=== PATIENT | female | born 1935 ===

== ENCOUNTER 2023-07-05 06:05 | Inpatient (IN) | payer MEDICARE, OTHER, SELFPAY ==
--- NOTE | 2023-06-06 09:45 | CM ---
Patient is scheduled for an elective R TKR on 07/05/23. Spoke with patient prior to surgery via telephone. Introduced role of Orthopedic Navigator. Patient reports that she lives alone in a two story home. There are two steps to enter and a flight of
steps to the second floor. She currently functions independently. She has no DME and has never had VN services. PCP is Katia Jurado.
Discussed orthopedic program and post surgical plans. Reviewed anticipated length of stay and that goal is for her to return home at discharge. Also reviewed outpatient PT. Patient is in agreement with tentative plan and will go directly to
outpatient PT at [facility]. She states that a friend will stay with her for two days.
Patient has completed online education.
Plan: Orthopedic Navigator will remain available to assist with the care of patient and will reassess discharge needs after surgery.
[2023-06-20 12:51] VITALS: BMI 20.9
[2023-06-20 13:13] LABS: Hematocrit 38.2 % (37.0-47.0); Mean Corpuscular Hgb 31.6 pg (27.0-31.0); Mean Corpuscular Volume 92.9 fL (81.0-99.0); Mean Platelet Volume 9.9 fL (7.4-10.4); Platelet Count 218 10^3/uL (130-400); Red Blood Cell Count 4.11 10^6/uL (4.20-5.40); White Blood Cell Count 4.1 10^3/uL (4.8-10.8)
[2023-06-20 13:30] LABS: ALT (SGPT) 28 U/L (0-35); AST (SGOT) 36 U/L (14-36); Albumin 4.3 g/dl (3.5-5.0); Alkaline Phosphatase 78 U/L (38-126); Blood Urea Nitrogen 17 mg/dl (7-17); Carbon Dioxide 30 mmol/L (22-30); Chloride 105 mmol/L (98-107); Estimated Creatinine Clearance 42 ml/min; Glucose 81 mg/dl (70-99); Potassium 3.9 mmol/L (3.5-5.1); Sodium 138 mmol/L (135-145); Total Bilirubin 0.9 mg/dl (0.2-1.3); Total Protein 6.8 g/dl (6.3-8.2); eGFR > 60.00
[2023-06-20 14:38] VITALS: BMI 20.9
[2023-06-21 09:31] LABS: Glycohemoglobin (HgbA1c) 5.1 % (4.0-5.6)
[2023-07-05] VITALS (21 sets, daily range): BP systolic 69–159; BP diastolic 47–73; PULSE 60; O2SAT 89; BMI 20.9
[2023-07-05] MEDS: NORMOSOL-R 1000 IV ×2 (07:13→11:57)
[2023-07-05] MEDS: CELEBREX 200 MG PO (07:14)
[2023-07-05] MEDS: VANCOCIN 200 IV ×2 (07:14→20:27)
[2023-07-05] MEDS: TYLENOL 650 MG PO ×3 (07:14→21:41)
[2023-07-05] MEDS: ROXICODONE 5 MG PO (11:56)
[2023-07-05] MEDS: DILAUDID 0.25 MG IV (12:28)
[2023-07-05] MEDS: ZOFRAN 4 MG IV (13:55)
[2023-07-05] MEDS: TYLENOL PO (14:39)
[2023-07-05] MEDS: FLORASTOR 250 MG PO ×2 (14:54→20:31)
[2023-07-05] MEDS: ULTRAM 50 MG PO ×2 (14:54→20:28)
[2023-07-05] MEDS: DILAUDID 0.5 MG IV (15:48)
[2023-07-05] MEDS: ANCEF 5 IV (17:40)
[2023-07-05] MEDS: ASPIRIN 325 MG PO (17:40)
[2023-07-05] MEDS: ADVAIR HFA 115/21 MCG INHALER 2 PUFF INH (20:10)
[2023-07-05] MEDS: BACTROBAN 2% OINTMENT 1 APPLIC NASAL (20:28)
[2023-07-05] MEDS: TORADOL 15 MG IV (20:28)
[2023-07-05] MEDS: SENOKOT 17.1999999999999993 MG PO (20:28)
[2023-07-05] MEDS: COLACE 100 MG PO (20:28)
[2023-07-05] MEDS: DECADRON 4 MG PO (20:30)
[2023-07-05] MEDS: NEURONTIN 300 MG PO (21:38)
[2023-07-05] MEDS: PEPCID 20 MG PO (21:39)
[2023-07-06] MEDS: TYLENOL PO ×2 (00:03→05:01)
[2023-07-06] MEDS: ANCEF 5 IV (00:56)
[2023-07-06 03:33] VITALS: BP 106/49
[2023-07-06 03:51] VITALS: BP 135/64
[2023-07-06 07:40] VITALS: BP 109/65
[2023-07-06] MEDS: MOBIC 15 MG PO (08:16)
[2023-07-06] MEDS: DECADRON 4 MG PO (08:16)
[2023-07-06] MEDS: FLORASTOR 250 MG PO (08:16)
[2023-07-06] MEDS: ASPIRIN 325 MG PO (08:16)
[2023-07-06] MEDS: SENOKOT 17.1999999999999993 MG PO (08:16)
[2023-07-06] MEDS: ULTRAM 50 MG PO (08:17)
[2023-07-06] MEDS: COLACE 100 MG PO (08:17)
[2023-07-06] MEDS: BACTROBAN 2% OINTMENT 1 APPLIC NASAL (08:17)
[2023-07-06] MEDS: TORADOL 15 MG IV (08:17)
[2023-07-06] MEDS: TYLENOL 650 MG PO ×2 (08:17→11:10)
[2023-07-06] MEDS: ADVAIR HFA 115/21 MCG INHALER 2 PUFF INH (08:26)
--- NOTE | 2023-07-06 08:39 | CM ---
Addendum entered by Gela Ellis 07/06/23 11:36:
Patient did well in therapy. She has no concerns about going home.
Original Note:
Reviewed chart and held rounds with PT, OT and nursing. Patient admitted as planned for elective R TKR. Met with patient at bedside. Confirmed information previously obtained for assessment. Also discussed discharge plans. The plan is for patient to
return home at discharge. Her friend will stay with her for a few days. Patient will go directly to outpatient PT and will go to [facility]. She has an appointment scheduled for Monday, 07/07.
Patient has a rolling walker and cane.
She will use [facility] for discharge prescriptions.
[2023-07-06 09:27] VITALS: BP 127/64; PULSE 66
--- NOTE | 2023-07-06 09:55 | W.PN.ORTHO ---
Today's Communication / Plan
-
d/c if BP remains stable
Assessment
.
Distal Motor Intact: Yes
Dressing:
Clean, dry and intact.
Assessment:
Dizzy w/ nausea--likely orthostatic due to anesthesia/opioid
+-Midodrine and IVF -adjust pain meds and antiemetics
Plan
.
Surgery / Date: R SCOTTY Gurrola 07/05/23
DVT Prophylaxis: Aspirin
Activity:
Out of bed.
PT/OT
Discharge Plan: Home w/ Outpatient PT
Subjective
.
.:
dizzy and nauseous
Vital Signs and Labs
.
Vital Signs and Labs:
Lab Results
06/20/23 12:32
06/20/23 12:32
Temp Pulse Resp BP Pulse Ox
98.2 F 77 18 109/65 97
07/06/23 07:40 07/06/23 07:40 07/06/23 07:40 07/06/23 07:40 07/06/23 07:40
Non-invasive Hgb result: 13.1
Physical Exam
-
HEENT: No pallor, cyanosis, or jaundice. Throat clear.
NECK: Supple. No JVD.
CVS: S1, S2 normal. RRR.�
ABDOMEN: Soft, non-tender. No distension. BS+/normal.
EXTREMITIES: strength equal, no calf pain with palpation
SENIOR VICE PRESIDENT & GENERAL COUNSEL: AOx3. No focal deficits. gluer and slicer hand grossly intact
--- NOTE | 2023-07-06 10:11 | W.DS.TRANS ---
DC Summary - Power Distributor
-
Discharge Instructions:
Sleep Apnea Risk Low
Discharge Diagnosis/Procedures R TKA Dr. Gurrola 07/05/23
Diet As tolerated
Activity With Walker
Additional Activity CONTINUE MUPIROCIN TWICE DAILY FOR A TOTAL OF 14
DAYS
Driving Restrictions No driving
Bathing Restrictions OK to Shower
Other Services PT
Stop these medications: HOLD SUPPLEMENTS -(UNLESS THOSE SPECIFIED ) X 7
DAYS POST-OP
Instructions:
Stand-Alone Forms: Total Hip/Knee Replacement D/C
Changes to Home Medications: Yes
Discharge Medications:
DC Medications w/original date entered in [employer]
mupirocin 2 % topical ointment 1 applic topical BID infection prevention #1 tube 06/19/23
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
Probiotic 10 mg PO DAILY probiotic 06/20/23
cyclosporine 0.05 % eye drops in a dropperette (Restasis) 1 drp ophthalmic (eye) Q12H dry eyes 06/20/23
fluconazole 150 mg tablet 150 mg PO TU Infection [fungal] 06/20/23
fluticasone 250 mcg-salmeterol 50 mcg/dose blistr powdr for inhalation (Advair Diskus) 1 - 2 inh inhalation BID Lung/Breathing Issues 06/20/23
acetaminophen 325 mg capsule (Tylenol) 650 mg PO TID #2 caps 07/06/23
aspirin 325 mg tablet 325 mg PO DAILY blood clot prevention #1 tab 07/06/23
dexamethasone 4 mg tablet 4 mg PO BID inflammation #6 tabs 07/06/23
docusate sodium 100 mg capsule (Colace) 100 mg PO BID stool softner #1 cap 07/06/23
famotidine 20 mg tablet 20 mg PO HS GI prophylaxis #30 tabs 07/06/23
gabapentin 300 mg capsule 300 mg PO HS sleep/pain #10 caps 07/06/23
hydrocodone 5 mg-acetaminophen 325 mg tablet 1 tab PO Q6H PRN moderate-severe pain #20 tabs 07/06/23
magnesium hydroxide 400 mg/5 mL oral suspension (Milk of Magnesia) 30 ml PO HS PRN Constipation #1 mL 07/06/23
meloxicam 15 mg tablet 15 mg PO DAILY anti-inflammatory #14 tabs 07/06/23
ondansetron 4 mg disintegrating tablet 4 mg PO Q6H PRN n/v #20 tabs 07/06/23
sennosides 8.6 mg tablet (Senokot) 17.2 mg PO BID laxative #2 tabs 07/06/23
Home Medication Changes
dexamethasone 4 mg tablet 4 mg PO BID inflammation #6 tabs 07/06/23
famotidine 20 mg tablet 20 mg PO HS GI prophylaxis #30 tabs 07/06/23
gabapentin 300 mg capsule 300 mg PO HS sleep/pain #10 caps 07/06/23
hydrocodone 5 mg-acetaminophen 325 mg tablet 1 tab PO Q6H PRN moderate-severe pain #20 tabs 07/06/23
meloxicam 15 mg tablet 15 mg PO DAILY anti-inflammatory #14 tabs 07/06/23
ondansetron 4 mg disintegrating tablet 4 mg PO Q6H PRN n/v #20 tabs 07/06/23
Pending Results: No
[2023-07-06 10:55] VITALS: BP 117/85; PULSE 76
[2023-07-06] MEDS: ZOFRAN ODT (ORALLY DISINTEGRATING) 4 MG PO (11:09)
[2023-07-06] MEDS: COMPAZINE 5 MG IV (11:09)
[2023-07-06 11:20] VITALS: BP 109/57
== END 2023-07-06 13:16 | disposition home or self-care (01) | DRG 470 ==
LOC: 2 SOUTH 06:05
PROVIDERS: ADMITTING PHYSICIAN Orthopaedic Surgery; FAMILY PHYSICIAN Internal Medicine
PROC: 0SRC069 Replacement of Right Knee Joint with Oxidized Zirconium on Polyethylene Synthetic Substitute, Cemented, Open Approach (ICD-10-PCS; 2023-07-05)
DX: M17.11 Unilateral primary osteoarthritis, right knee (principal); R11.0 Nausea; R42 Dizziness and giddiness
CPT/HCPCS: 36415; 73560; 80053; 83036; 85027; 87070; 93005; 94640; 97110; 97116; 97162; 97165; 97530; C1713; C1776

== ENCOUNTER 2024-10-11 18:31 | Emergency (ER) | payer MEDICARE, OTHER, SELFPAY ==
[2024-10-11 18:38] VITALS: BP 144/72
[2024-10-11 18:55] LABS: % Basophils 0.7 % (0-2); % Eosinophils 4.4 % (0-6); % Immature Granulocytes 0.2 % (0-0.5); % Lymphocytes 9.1 % (20.5-51.1); % Monocytes 9.1 % (1.7-9.3); % Neutrophils 76.5 % (42.2-75.2); Absolute Eosinophils 0.2 10^3/uL (0-0.7); Absolute Lymphocytes 0.5 10^3/uL (1.2-3.4); Absolute Monocytes 0.5 10^3/uL (0.1-0.6); Absolute Neutrophils 4.2 10^3/uL (1.4-6.5); Hemoglobin 12.7 g/dL (12.0-16.0); Mean Corp Hgb Conc. 33.4 g/dL (33.0-37.0); Mean Corpuscular Hgb 30.6 pg (27.0-31.0); Mean Corpuscular Volume 91.6 fL (81.0-99.0); Mean Platelet Volume 9.4 fL (7.4-10.4); Nucleated Red Blood Cells % 0 %; Platelet Count 196 10^3/uL (130-400); Red Blood Cell Count 4.15 10^6/uL (4.20-5.40); Red Cell Dist. Width 13.8 % (11.5-14.5); White Blood Cell Count 5.5 10^3/uL (4.8-10.8)
[2024-10-11 19:08] LABS: Lactic Acid 0.7 mmol/L (0.7-2.0)
[2024-10-11 19:09] LABS: ALT (SGPT) 21 U/L (0-35); AST (SGOT) 33 U/L (14-36); Albumin 4.4 g/dl (3.5-5.0); Alkaline Phosphatase 82 U/L (38-126); Blood Urea Nitrogen 22 mg/dl (7-17); Calcium 9.2 mg/dl (8.4-10.2); Carbon Dioxide 26 mmol/L (22-30); Chloride 102 mmol/L (98-107); Glucose 100 mg/dl (70-99); Potassium 4.1 mmol/L (3.5-5.1); Sodium 138 mmol/L (135-145); Total Bilirubin 0.8 mg/dl (0.2-1.3); Total Protein 6.9 g/dl (6.3-8.2); eGFR > 60.00
[2024-10-11] MEDS: TYLENOL 650 MG PO (19:24)
[2024-10-11 20:56] VITALS: BP 106/59
--- NOTE | 2024-10-11 21:25 | ED.GENMED ---
History of Present Illness
<Dayana Jackson, VP MARKETING - Last Filed: 10/12/24 16:30>
General
Chief Complaint: Skin Problem
Source: patient
Exam Limitations: none
Time Seen by Provider: 10/11/24 20:43
Nursing documentation reviewed up to this point in time: agreed with
History of Present Illness
History of Present Illness:
89 yo female with hx skin biopsy by Dr. Richards lateral aspect LLE in Jul. BX came back neg for CA. She has had local infection to area since, unresponsive to Keflex, Doxycycline and now she is on Minocycline. Wound culture done 2 weeks ago, one
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 Dr. Richards consulted ID doctor and sent a picture of the wound to ID who said they would like to wait until the rest of the cultures are back; they are not back yet.
This evening pt had fever of 101.7 at home and called Dr. Richards who was concerned for infection and sent her here
She denies cough, CP, abd pain, UTI symptoms, no known sick contacts, no recent travel.
Pt states she and Dr Richards, who she last saw 3 days ago, agree wound is slowly improving.
Pt denies any worse pain in the area, no swelling, redness
Past History
<Dayana Jackson, VP MARKETING - Last Filed: 10/12/24 16:30>
Past History
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
ED Past Surgical History: Orthopedic
Social History
Tobacco: Non-smoker
Alcohol: None
Living: alone
Review of Systems
<Dayana Jackson, VP MARKETING - Last Filed: 10/12/24 16:30>
Review of Systems
Allergies reviewed?: Yes
All Other Systems: ROS reviewed and negative except as documented in HPI and ROS
Constitutional: Reports fever and fatigue (mild body aches); Denies chills
Respiratory: Denies trouble breathing
Cardiac: Denies chest pain
ABD/GI: Reports nausea (mild earlier none now); Denies abdominal pain, vomiting, diarrhea or constipated
: Denies dysuria, frequency or difficulty voiding
Musculoskeletal: Denies edema
Skin: Reports other (wound lateral left lower leg, states it is improving)
Neurological: Reports no symptoms
Phy Exam
<Dayana Hawkins , VP MARKETING - Last Filed: 10/12/24 16:30>
Physical Exam
Physical Exam:
GENERAL: No acute distress. A&Ox3.
CONSTITUTIONAL: Afebrile.
EYES: clear, conjunctivae normal
ENMT: moist mucus membranes
RESPIRATORY: Regular respirations, nonlabored, lungs clear.
CARDIOVASCULAR: Regular rate and rhythm, no murmurs, no rubs.
GI: Soft, nontender
MUSCULOSKELETAL: Moves with ease. Well perfused.
SKIN: Warm, dry, pink. approx 7 x 4 cm area lateral left lower leg with Wound that appears to be healing well. No surrounding redness, no significant pain, distal n/v intact.
PSYCH: Normal mood and affect. Well kept, interactive and appropriate
NEUROLOGIC: Awake, alert and oriented. No focal neurological deficits
Sepsis
<Dayana VMalik , VP MARKETING - Last Filed: 10/12/24 16:30>
Sepsis Screening
Sepsis Assessment: Sepsis Ruled Out
Sepsis Screen
Sepsis Screen: Sepsis Ruled Out
Date: 10/12/24
Time: 16:30
Course
<Dayana Little. , VP MARKETING - Last Filed: 10/12/24 16:30>
Orders/Labs/Results
Orders:
Orders
10/11/24 18:43
IV Insert/Care/Rem.- Treatment PRN
O2 Therapy [RESP] Urgent
Titrate/Wean O2 to maintain O2 sat greater than (%): 93
Special Instructions: TO MAINTAIN CONTINUOUS O2 SATS > OR = 93%
Pulse Ox/cont/shift [RESP] Urgent
Quantity: 1
Special Instructions: CONTINUOUS
10/11/24 18:47
Complete Blood Count/With Diff Urgent
Comprehensive Metabolic Panel Urgent
Lactic Acid Q4H
Comment: ON ICE, CANCEL 2ND ORDER IF FIRST LACTIC ACID LEVEL <2
Blood Culture Q20M
MICKY Source: Blood/Venous
Specimen Description:
Comment: Urgent from separate sites. If patient screens positive for possible sepsis
10/11/24 19:20
Acetaminophen [Tylenol] 650 mg .ROUTE .STK-MED ONE
10/11/24 19:23
Acetaminophen [Tylenol] 650 mg PO NOW STA
10/11/24 22:00
CR Leg Tibia/fibula Left 2 Vw Urgent
Comment:
Reason For Exam: wound lateral lower leg
10/11/24 22:29
COVID-19 Antigen Urgent
Source: Nasal Swab
Blood Culture Q20M
MICKY Source: Blood/Venous
Specimen Description:
Comment: Urgent from separate sites. If patient screens positive for possible sepsis
Influenza A+B Rapid Molecular Urgent
MICKY Source: Nasal Swab
Specimen Description:
10/11/24 22:32
Urinalysis Reflex To Culture Urgent
Date Specimen was Collected: 10/11/24
Time Specimen was Collected: 22:31
Abnormal Lab Results
10/11/24
18:47
RBC 4.15 L 10^6/uL
(4.20-5.40)
Absolute Lymphs (auto) 0.5 L 10^3/uL
(1.2-3.4)
Neutrophils % 76.5 H %
(42.2-75.2)
Lymphocytes % 9.1 L %
(20.5-51.1)
BUN 22 H mg/dl
(7-17)
Glucose 100 H mg/dl
(70-99)
10/11/24 18:47
10/11/24 18:47
Vital Signs
Initial and Last Documented VS:
Initial Vital Signs
Temp Pulse Resp BP Pulse Ox
100.9 F H 88 16 144/72 97
10/11/24 18:38 10/11/24 18:38 10/11/24 18:38 10/11/24 18:38 10/11/24 18:38
Last Documented Vital Signs
Temp Pulse Resp BP Pulse Ox
101 F H 88 16 110/76 95
10/11/24 19:17 10/11/24 18:38 10/11/24 18:38 10/12/24 00:00 10/12/24 00:01
<Naveed English, DO - Last Filed: 10/11/24 22:22>
Orders/Labs/Results
Orders:
Orders
10/11/24 18:43
IV Insert/Care/Rem.- Treatment PRN
O2 Therapy [RESP] Urgent
Titrate/Wean O2 to maintain O2 sat greater than (%): 93
Special Instructions: TO MAINTAIN CONTINUOUS O2 SATS > OR = 93%
Pulse Ox/cont/shift [RESP] Urgent
Quantity: 1
Special Instructions: CONTINUOUS
10/11/24 18:47
Complete Blood Count/With Diff Urgent
Comprehensive Metabolic Panel Urgent
Lactic Acid Q4H
Comment: ON ICE, CANCEL 2ND ORDER IF FIRST LACTIC ACID LEVEL <2
Blood Culture Q20M
MICKY Source: Blood/Venous
Specimen Description:
Comment: Urgent from separate sites. If patient screens positive for possible sepsis
10/11/24 19:20
Acetaminophen [Tylenol] 650 mg .ROUTE .STK-MED ONE
10/11/24 19:23
Acetaminophen [Tylenol] 650 mg PO NOW STA
10/11/24 22:00
CR Leg Tibia/fibula Left 2 Vw Urgent
Comment:
Reason For Exam: wound lateral lower leg
10/11/24 22:29
COVID-19 Antigen Urgent
Source: Nasal Swab
Blood Culture Q20M
MICKY Source: Blood/Venous
Specimen Description:
Comment: Urgent from separate sites. If patient screens positive for possible sepsis
Influenza A+B Rapid Molecular Urgent
MICKY Source: Nasal Swab
Specimen Description:
10/11/24 22:32
Urinalysis Reflex To Culture Urgent
Date Specimen was Collected: 10/11/24
Time Specimen was Collected: 22:31
Abnormal Lab Results
10/11/24
18:47
RBC 4.15 L 10^6/uL
(4.20-5.40)
Absolute Lymphs (auto) 0.5 L 10^3/uL
(1.2-3.4)
Neutrophils % 76.5 H %
(42.2-75.2)
Lymphocytes % 9.1 L %
(20.5-51.1)
BUN 22 H mg/dl
(7-17)
Glucose 100 H mg/dl
(70-99)
10/11/24 18:47
10/11/24 18:47
Vital Signs
Initial and Last Documented VS:
Initial Vital Signs
Temp Pulse Resp BP Pulse Ox
100.9 F H 88 16 144/72 97
10/11/24 18:38 10/11/24 18:38 10/11/24 18:38 10/11/24 18:38 10/11/24 18:38
Last Documented Vital Signs
Temp Pulse Resp BP Pulse Ox
101 F H 88 16 110/76 95
10/11/24 19:17 10/11/24 18:38 10/11/24 18:38 10/12/24 00:00 10/12/24 00:01
<Dayana Jackson, VP MARKETING - Last Filed: 10/12/24 16:30>
MDM/Problems Addressed
Differential Diagnosis Includes:
cellulitis
MDM/Problems Addressed:
89 yo female with hx skin biopsy by Dr. Richards lateral aspect LLE in Jul. BX came back neg for CA. She has had local infection to area since, unresponsive to Keflex, Doxycycline and now she is on Minocycline. Wound culture done 2 weeks ago, one
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 Dr. Richards consulted ID doctor and sent a picture of the wound to ID who said they would like to wait until the rest of the cultures are back; they are not back yet.
This evening pt had fever of 101.7 at home and called Dr. Richards who was concerned for infection and sent her here
She denies cough, CP, abd pain, UTI symptoms, no known sick contacts, no recent travel.
Pt states she and Dr Richards, who she last saw 3 days ago, agree wound is slowly improving.
Pt denies any worse pain in the area, no swelling, redness
CBC normal
CMP unremarkable
U/A neg
Covid neg
Flu neg
Tib fib xray: Radiology read; IMPRESSION:
No acute fracture or dislocation. Partially visualized regional joints demonstrate degenerative changes. Soft tissues are grossly unremarkable.
Wound appears to be healing well, no surrounding cellulitis, small amount clear drainage. Distal n/v intact. Do not suspect fever is from the wound.
Plan: DC home. She feels well and appears well.
Return instructions reviewed.
Dr. English in to evaluate and agrees with assessment and plan.
<Dayana Jackson VP MARKETING - Last Filed: 10/12/24 16:30>
*Critical Care Note
Total Time (30-74mins, 75-104mins- exclusive of procedures): Not Applicable
ED Attending Note
<Dayana Jackson, VP MARKETING - Last Filed: 10/12/24 16:30>
-
Portions of this chart may have been created with voice recognition software.� Occasional wrong word or��sound alike� substitutions may have occurred due to the inherent limitations of voice recognition software.
<Naveed English DO - Last Filed: 10/11/24 22:22>
ED Attending Note
Patient seen and examined by attending physician: Yes
I performed the substantive portion of visit, reviewed & personally made and approve the management plan that is documented in note by myself or ANGELA.: Yes
Discharge Plan
Departure
Patient Disposition: Home (Routine Discharge)
Date of Disposition: 10/11/24
Time of Disposition: 23:43
Patient with high blood pressure during this ER visit?: No
Condition: Good
Discharge Problem:
Fever in adult
Instructions: Fever in adults - Discharge instructions
Prescriptions:
No Action
mupirocin 2 % ointment
1 applic topical BID Qty: 1 0RF
Patient Comments:
started treatment monday07/02/23 and wa staking BID, last took at home 07/05/23 in am
cyclosporine [Restasis] 0.05 % Dropperette
1 drp OPHTHALMIC (EYE) Q12H
Immune Globulin
1 dose IV Q30D
Probiotic 10 MG
10 mg PO DAILY
fluticasone propion-salmeterol [Advair Diskus] 250-50 mcg/dose Blister With Device
1 - 2 inh INHALATION BID
fluconazole 150 mg Tablet
150 mg PO TU
aspirin 325 mg tablet
325 mg PO DAILY Qty: 1 0RF
Rx Instructions:
Take with food
hydrocodone-acetaminophen 5-325 mg tablet
1 tab PO Q6H PRN (Reason: moderate-severe pain) Qty: 20 0RF
Rx Instructions:
Dx orthopedic surgery
ongoing therapy
famotidine 20 mg tablet
20 mg PO HS Qty: 30 0RF
Rx Instructions:
post-op
dexamethasone 4 mg tablet
4 mg PO BID Qty: 6 0RF
Rx Instructions:
take with food
post-op use only
gabapentin 300 mg capsule
300 mg PO HS Qty: 10 0RF
sennosides [Senokot] 8.6 mg tablet
17.2 mg PO BID Qty: 2 0RF
meloxicam 15 mg tablet
15 mg PO DAILY Qty: 14 0RF
Rx Instructions:
take with food
post-op
magnesium hydroxide [Milk of Magnesia] 400 mg/5 mL suspension
30 ml PO HS PRN (Reason: Constipation) Qty: 1 0RF
docusate sodium [Colace] 100 mg capsule
100 mg PO BID Qty: 1 0RF
ondansetron [ondansetron] 4 mg tablet,disintegrating
4 mg PO Q6H PRN (Reason: n/v) Qty: 20 0RF
Rx Instructions:
take 1/2h b/f pain med if recurrent nausea
allow to dissolve in mouth w/o water
acetaminophen [Tylenol] 325 mg capsule
650 mg PO TID Qty: 2 0RF
Referrals:
Katia Jurado, DO [Family Provider] -
Activity Restrictions/Additional Instructions:
As we discussed, your wound appears to be healing, slowly but improving from the picture you showed me and you and Dr. Richards agree
I do not believe your fever is from infection of this wound
Your blood work is normal
Your xray shows nothing worrisome
Your urine shows no infection.
Covid and Flu are negative.
Continue Tylenol and Ibuprofen as needed for fever.
Seek medical care immediately if the wound starts to look worse, your fever above 100.5 is unrelieved with Tylenol or Ibuprofen, vomiting or feeling sicker in any way.
Call Dr. Richards Monday and update him on how you are feeling.
Interventions
Interventions:
*Risk Screen - Suicide Last Done: 10/11/24 18:38
*General Assessment Last Done: 10/11/24 18:38
*Neglect/Abuse Screening Last Done: 10/11/24 18:38
*ED- Fall Risk Assessment Last Done: 10/11/24 18:38
*ED COVID-19 Vaccine History Last Done: 10/11/24 18:38
*Nursing Disposition Last Done: 10/12/24 00:13
ED-Skin Assessment Last Done: 10/11/24 21:50
Discharge Date and Time
Discharge Date/Time: 10/12/24 00:14
Print Language: [id number]
[2024-10-11 22:43] LABS: Urine Albumin Negative (Neg - Trace); Urine Bilirubin Negative (Negative); Urine Character Clear (Clear); Urine Color Yellow; Urine Glucose Negative (Negative); Urine Ketone Negative (Negative); Urine Leukocyte Negative (Negative); Urine Nitrite Negative (Negative); Urine Occult Blood Negative (Negative); Urine Urobilinogen Negative (Neg - 1+)
[2024-10-11 22:59] LABS: COVID-19 Antigen Negative (Negative)
[2024-10-12] VITALS: BP 110/76
== END 2024-10-12 00:14 | disposition home or self-care (01) ==
LOC: EMR 18:31
PROVIDERS: Registered Nurse; Student in an Organized Health Care Education/Training Program; EMERGENCY PHYSICIAN Emergency Medicine; FAMILY PHYSICIAN Internal Medicine
DX: R50.9 Fever, unspecified (principal); Z11.52 Encounter for screening for COVID-19; Z48.01 Encounter for change or removal of surgical wound dressing
CPT/HCPCS: 99284; 73590; 80053; 81003; 83605; 85025; 87040; 87502; 87811

== ENCOUNTER 2024-10-15 08:59 | Inpatient (IN) | payer MEDICARE, OTHER, SELFPAY ==
[2024-10-14] VITALS (20 sets, daily range): BP systolic 79–119; BP diastolic 40–88; PULSE 75–89; BMI 19.5; BMI 18.4
[2024-10-14 11:14] LABS: % Basophils 0.3 % (0-2); % Eosinophils 1.5 % (0-6); % Immature Granulocytes 0.4 % (0-0.5); % Lymphocytes 3.8 % (20.5-51.1); % Monocytes 6.1 % (1.7-9.3); % Neutrophils 87.9 % (42.2-75.2); Absolute Eosinophils 0.1 10^3/uL (0-0.7); Absolute Lymphocytes 0.3 10^3/uL (1.2-3.4); Absolute Monocytes 0.5 10^3/uL (0.1-0.6); Absolute Neutrophils 6.5 10^3/uL (1.4-6.5); Hemoglobin 13.6 g/dL (12.0-16.0); Mean Corpuscular Hgb 30.6 pg (27.0-31.0); Mean Corpuscular Volume 90.1 fL (81.0-99.0); Mean Platelet Volume 9.9 fL (7.4-10.4); Nucleated Red Blood Cells % 0 %; Platelet Count 170 10^3/uL (130-400); Red Blood Cell Count 4.44 10^6/uL (4.20-5.40); Red Cell Dist. Width 13.4 % (11.5-14.5); White Blood Cell Count 7.4 10^3/uL (4.8-10.8)
[2024-10-14 11:25] LABS: Lactic Acid 1.3 mmol/L (0.7-2.0)
[2024-10-14 11:28] LABS: ALT (SGPT) 19 U/L (0-35); AST (SGOT) 29 U/L (14-36); Albumin 3.5 g/dl (3.5-5.0); Alkaline Phosphatase 58 U/L (38-126); Blood Urea Nitrogen 25 mg/dl (7-17); Calcium 8.6 mg/dl (8.4-10.2); Carbon Dioxide 28 mmol/L (22-30); Chloride 99 mmol/L (98-107); Glucose 152 mg/dl (70-99); Potassium 4.1 mmol/L (3.5-5.1); Sodium 133 mmol/L (135-145); Total Bilirubin 0.9 mg/dl (0.2-1.3); Total Protein 6.3 g/dl (6.3-8.2); eGFR > 60.00
[2024-10-14] MEDS: TYLENOL 650 MG PO ×3 (12:56→23:54)
--- NOTE | 2024-10-14 15:18 | ED.GENMED ---
History of Present Illness
General
Chief Complaint: Fever
Source: patient and family
Exam Limitations: none
Time Seen by Provider: 10/14/24 13:25
History of Present Illness
History of Present Illness:
89-year-old female who again presents with fevers. Her fevers have somewhat persisted. Seen on 11 October by me. Patient recently had a biopsy due to a wound on her left lower extremity. 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 Patient was
placed on minocycline. Patient continues to state that the wound continues to improve. However she has had persistence of fever up to 101.7. She denies cough or congestion. She does admit on this visit that she has had some puffiness around her
eyes and redness. This is new. She questions whether could be related to the medication.
Family states that patient has been nauseous and not eating and drinking very well.
Past History
Past History
ED Past Medical History: Asthma and Cancer (basal and squamous cell CA)
ED Past Surgical History: Orthopedic and Other (Cataract, bilateral mastectomy)
Social History
Tobacco: Non-smoker
Alcohol: None
Living: alone
Phy Exam
Physical Exam
Physical Exam:
CONSTITUTIONAL Patient alert and oriented to person, place and time. Well-appearing. Vital signs reviewed.
HEAD atraumatic, normocephalic.
EYES she does have some redness to the periorbital region left greater than right. Extraocular muscles intact, Conjunctiva normal, Sclera normal.
NECK normal range of motion, Trachea midline, no jugular venous distention.
RESPIRATORY CHEST No respiratory distress noted, Chest expansion equal
CARDIOVASCULAR regular rate and rhythm, Heart sounds normal.
ABDOMEN No distention.
BACK normal inspection, no obvious deformities
UPPER EXTREMITY range of motion normal, Motor strength normal, no cyanosis, no edema.
LOWER EXTREMITY range of motion normal, Motor strength normal, no cyanosis, no edema. Lateral left lower extremity wound noted. There is no surrounding redness. There is a little bit of bogginess. There is a small area of the open wound in the
center of the lesion that has a little bit of exudative base but there is certainly no surrounding cellulitis.
NEURO Speech normal, No focal motor deficits, Kobi coma scale 15, Memory normal, Cranial Nerves intact to screening exam.
SKIN skin warm, dry, and normal in color.
Course
Orders/Labs/Results
Orders:
Orders
10/14/24 Lunch
Cholesterol Lowering
At Your Request: Full Participation
Does patient need a safe tray?: No
Cholesterol Lowering: Sodium, 2 Gram
10/14/24 11:00
Complete Blood Count/With Diff Urgent
Comprehensive Metabolic Panel Urgent
Creatine Phosphokinase Urgent
Comment: ADD ON
Lactic Acid Urgent
Blood Culture Urgent
MICKY Source: Blood/Venous
Specimen Description:
10/14/24 12:39
Urinalysis Reflex To Culture Urgent
Date Specimen was Collected: 10/14/24
Time Specimen was Collected: 12:39
10/14/24 12:54
Acetaminophen [Tylenol] 650 mg .ROUTE .STK-MED ONE
10/14/24 12:56
Acetaminophen [Tylenol] 650 mg PO NOW STA
10/14/24 13:21
Blood Culture Urgent
MICKY Source: Blood/Venous
Specimen Description:
10/14/24 15:17
INFECTIOUS DISEASE CONSULT Routine
Consulting Provider: Alex Lamb
Was physician already notified: Yes
10/14/24 16:40
0.9% Sodium Chloride 500 ml [Nss] 500 ml IV BOLUS
10/14/24 16:50
Mupirocin [Bactroban 2% Ointment] 1 applic TOPICAL NOW STA
10/14/24 17:10
Diphenhydramine [Benadryl] 12.5 mg IV NOW STA
Orthostatic Vital Signs As Directed
Orthostatic VS Frequency: Now
10/14/24 17:20
Add On- LAB Routine
Tests Added?: CPK
10/14/24 17:21
Admit/Transfer Patient As Directed
Co-Sign Provider:
Level of Care: Observation services
Assign to:: Medical/Surgical
Physician / Group: Danette
Diagnosis: Serum sickness
PRN Pain Medication Management As Directed
May give lesser potent ordered pain med per pt: Yes
preference::
Protocol:: Medication orders for pain may be administered in a
manner that supports deferring to patient preference
when the pt is:
- Requesting an ordered lesser potent pain medication.
Least to most potent pain medications are defined
as: acetaminophen < NSAID < tramadol < opioids
(morphine, oxycodone, hydromorphone).
- Requesting a lesser dose of the same medication IF
ORDERED.
- Requesting a less intrusive route of administration
if both routes are prescribed by the provider (PO <
IV).
10/14/24 17:22
Code Status As Directed
Resuscitation Status: Full Code
10/14/24 17:57
Acetaminophen [Tylenol] 650 mg PO Q4HPRN PRN
10/14/24 18:12
Ondansetron Injectable [Zofran] 4 mg IV Q8HPRN PRN
10/14/24 19:28
Albuterol Nebs [Ventolin Nebules] 2.5 mg INH R Q4HPRN PRN
Bisacodyl [Dulcolax] 10 mg RECTAL [id number] PRN
Docusate W/Senna [Senokot-S] 1 tablet PO BIDPRN PRN
Lactated Ringers [Lr] 1,000 ml IV 100 mls/hr
Polyethylene Glycol Powder [Miralax] 17 grams PO DAILYPRN PRN
10/14/24 19:28
Activity As Directed
Activity Level: Out of Bed-Early Mobility
Vital Signs As Directed
Frequency: Per unit guidelines
DX Deep Vein Thrombosis Video Routine
10/14/24 20:00
Fluticasone/Salmeterol 115/21 [Advair Hfa 115/21 Mcg Inhaler] 2 puff INH R BID
Heparin 5,000 units SC Q12
cycloSPORINE [Restasis 0.05% Ophthalmic Emulsion] 1 drops BOTH EYES Q12H
10/14/24 20:12
MRSA Screen Routine
MICKY Source: Nose
Specimen Description:
10/14/24 22:00
Gabapentin [Neurontin] 300 mg PO HS
10/15/24 02:39
Urine Microscopic Reflex Cult Urgent
Urine Culture Urgent
MICKY Source: U
Specimen Description:
Date Specimen was Collected: 10/14/24
Time Specimen was Collected: 12:39
10/15/24 06:18
Diphenhydramine [Benadryl] 12.5 mg IV NOW STA
Diphenhydramine [Benadryl] 25 mg IV NOW STA
10/15/24 06:25
Cetirizine HCl [Zyrtec] 5 mg PO NOW STA
10/15/24 07:20
CR Chest - 2 Views Urgent
Comment:
Reason For Exam: fever
10/15/24 07:22
SHELLEY, IgG Reflex to HEp-2 [S] Routine
C-Reactive Protein Urgent
Comment: ADD ON
CBC/With Diff [Complete Blood Count/With Diff] Urgent
CMP [Comprehensive Metabolic Panel] Urgent
Erythrocyte Sed Rate Urgent
Comment: ADD ON
Ferritin Urgent
Comment: ADD ON
Histone Antibody, IgG [S] Routine
LDH Urgent
Comment: ADD ON
Lyme Progressive Urgent
Comment: ADDED TO MORNING LABS
Procalcitonin Urgent
If negative, will antibiotics be d/c'd or not started: Yes
Does the patient have renal or hepatic impairment?: No
Any recent (w/in 48 hrs) physiologic stress (CPR, rhabdo): No
10/15/24 08:08
Add On- LAB Urgent
Tests Added?: LDH, ESR, CRP, ferritin
Ondansetron Injectable [Zofran] 4 mg IV Q8HPRN PRN
10/15/24 08:10
Acetaminophen [Tylenol] 650 mg PO Q4HPRN PRN
10/15/24 08:45
US Renal With Bladder Urgent
Comment:
Reason For Exam: UTI, flank pain
10/15/24 08:59
Level of Care Change As Directed
Level of Care: Inpatient admission
Reason for Hospitalization: Fever
Expected length of stay greater than two midnights?: Yes
ELOS- Estimated Length of Stay in days: 4
I certify the patient meets the requirements for IP care: Yes
10/15/24 10:00
CefTRIAXone [Rocephin] 1,000 mg IV Q24H
Sterile Water [Sterile Water For Injection] 10 ml IV Q24H
10/16/24 06:00
Complete Blood Count/With Diff IN AM
Comprehensive Metabolic Panel IN AM
Abnormal Lab Results
10/14/24 10/15/24 10/15/24
11:00 02:39 07:22
RBC 4.03 L 10^6/uL
(4.20-5.40)
Hct 36.4 L %
(37.0-47.0)
MPV 10.5 H fL
(7.4-10.4)
Absolute Lymphs (auto) 0.3 L 10^3/uL 0.3 L 10^3/uL
(1.2-3.4) (1.2-3.4)
Neutrophils % 87.9 H % 83.1 H %
(42.2-75.2) (42.2-75.2)
Lymphocytes % 3.8 L % 4.3 L %
(20.5-51.1) (20.5-51.1)
ESR 66 H mm/hour
(0-20)
Sodium 133 L mmol/L 134 L mmol/L
(135-145) (135-145)
BUN 25 H mg/dl 20 H mg/dl
(7-17) (7-17)
Glucose 152 H mg/dl 106 H mg/dl
(70-99) (70-99)
Calcium 8.2 L mg/dl
(8.4-10.2)
Creatine Kinase 151 H U/L
(30-135)
C-Reactive Protein 191.80 H mg/L
(0.0-10.00)
Total Protein 5.4 L g/dl
(6.3-8.2)
Albumin 2.9 L g/dl
(3.5-5.0)
Procalcitonin 0.80 H ng/ml
(0.0-0.25)
Urine Ketones 2+ A
(Negative)
Ur Occult Blood Reflex 1+ A
(Negative)
Leukocyte Esterase Rfl 1+ A
(Negative)
Urine WBC (Reflex) 11-15 A /HPF
(0-5)
Urine Bacteria (Reflex) Few A
(Negative)
Urine Albumin (Reflex) 2+ A
(Neg - Trace)
10/15/24 07:22
10/15/24 07:22
Vital Signs
Initial and Last Documented VS:
Initial Vital Signs
Temp Pulse Resp BP Pulse Ox
100.1 F 86 16 110/56 95
10/14/24 10:47 10/14/24 10:47 10/14/24 10:47 10/14/24 10:47 10/14/24 10:47
Last Documented Vital Signs
Temp Pulse Resp BP Pulse Ox
99.6 F 76 16 104/55 99
10/15/24 07:45 10/15/24 07:45 10/15/24 07:45 10/15/24 07:45 10/15/24 08:00
MDM/Problems Addressed
Differential Diagnosis Includes:
Cellulitis, bacteremia, endocarditis, sepsis, pneumonia
MDM/Problems Addressed:
Fever, lower extremity wound
*Pulse Oximetry
Patient hypoxic: no
*Critical Care Note
Total Time (30-74mins, 75-104mins- exclusive of procedures): Not Applicable
Data Reviewed
Review of Other/Old Records Reveals: Labs (Recent blood cultures reviewed from October 2024 revealing no growth)
Source: patient and family
Prescriptions/Medications Considered But Not Given:
Considered IV antibiotics however recent blood cultures negative.
Patient Management
Discussion with other providers: [employer] Adf Developer (Patient with persistent fevers. Case discussed with infectious disease to evaluate her in the emergency department)
Escalation/DeEscalation of care consider admission/obs:
Well-appearing but does have continued fevers. Recent blood cultures negative. On minocycline. She does have some periorbital redness at this time but does not appear to facial cellulitis for any reason. Gross white count normal but does have a
little bit of a left shift. Await infectious disease input
1628 patient seen by infectious disease who recommends hold antibiotics for now. Cultures have been negative. Patient is well-appearing. ID question serum sickness and monitor off antibiotics for now. Patient has not been eating well. Family
concerned. Will admit for IV fluids and monitoring off antibiotics.
ED Attending Note
-
Portions of this chart may have been created with voice recognition software.� Occasional wrong word or��sound alike� substitutions may have occurred due to the inherent limitations of voice recognition software.
Discharge Plan
Departure
Patient Disposition: Admit
Date of Disposition: 10/14/24
Time of Disposition: 16:28
Admit to: Med/Surg
Presentation/result/management discussed w/ accepting MD/DO: Hospitalist
Patient with high blood pressure during this ER visit?: No
Discharge Problem:
Fever, possible serum sickness
Interventions
Interventions:
*Risk Screen - Suicide Last Done: 10/14/24 10:48
*General Assessment Last Done: 10/14/24 12:41
*Neglect/Abuse Screening Last Done: 10/14/24 10:48
*ED- Fall Risk Assessment Last Done: 10/14/24 12:38
*ED COVID-19 Vaccine History Last Done: 10/14/24 12:40
*Nursing Disposition Last Done: 10/14/24 20:54
ED- Neurological Assessment Last Done: 10/14/24 12:38
ED-Skin Assessment Last Done: 10/14/24 16:38
Discharge Date and Time
Discharge Date/Time: 10/14/24 20:55
--- NOTE | 2024-10-14 16:11 | CON.ID ---
Consultation
-
Date/Time Consultation Requested: 10/14/2024 1517
Date/Time Consultation Performed: 10/14/2024 1530
Requesting Provider: Dr. English
Performing Provider: Dr. Lamb
Reason for Consultation: Fever; leg wound
Chief Complaint / Past History
History of Present Illness
Juliana Alexandra is an 89-year-old female being evaluated at the request of Dr. English regarding fever and a leg wound. History is obtained from chart review, along with patient interview. Additional history was obtained from the patient's daughter
who was at the bedside.
The patient reports that she had a lump removed from her left lateral calf area in July. Thereafter, she developed a lateral calf area wound, and she has been followed closely by her furniture servicer. She reports she has been on several
antibiotics over the past several weeks, and started minocycline approximately 2 weeks ago. Last week she developed some fever and was seen here in the ER but discharged to home. She presents back today secondary to ongoing fever, and she also has
noted some diffuse facial swelling. She denies any other complaints, specifically she denies any shortness of breath or cough. She reports that she has been receiving local care to the left leg area in the dermatology office, keeping the area
dressed for a week at a time until her next visit.
Past History
Additional Past Medical History:
Asthma
Basal cell skin cancer
Hx squamous cell CA
Additional Past Surgical History:
Bilateral mastectomy
Allergy History:
meperidine [From Demerol] Allergy (Verified 07/05/23 07:07)
Vomiting
Sulfa (Sulfonamide Antibiotics) Allergy (Verified 07/05/23 07:07)
Vomiting
Medications Reviewed: Yes
Current Antibiotics:
minocycline
Social History
Tobacco: Non-Smoker
Alcohol: None
Drug: None
Living: Alone
Employment: Retired
Review of Systems
Vital Signs
Temp Pulse Resp BP Pulse Ox
100.1 F 76 20 97/58 95
10/14/24 10:47 10/14/24 14:30 10/14/24 14:30 10/14/24 14:00 10/14/24 10:47
Physical Exam
Physical Exam
Constitutional: No Acute Distress, Comfortable and Non-toxic
Head: Other (general facial swelling noted. Possible faint rash diffusely, but erythema noted around left eye)
Eyes: No Conjunctival Hemorrhage
Cardiovascular: S1/S2 and S3/S4
Pulmonary: Clear; Negative Wheezes, Rales or Rhonchi
Gastrointestinal: Soft, Non Tender and Non Distended
Wound: Other (Left lateral calf area with dry crusting. No open wounds or drainage.)
Neurological: Awake and Alert
Psychological: Calm
Lab / Diagnostic Study Results
10/14/24 11:00
10/14/24 11:00
Abs Immat Gran (auto) 0.0 10^3/uL (0-0.05) 10/14/24 11:00
Absolute Neuts (auto) 6.5 10^3/uL (1.4-6.5) 10/14/24 11:00
Absolute Lymphs (auto) 0.3 10^3/uL (1.2-3.4) L 10/14/24 11:00
Absolute Monos (auto) 0.5 10^3/uL (0.1-0.6) 10/14/24 11:00
Absolute Basos (auto) 0.0 10^3/uL (0-0.2) 10/14/24 11:00
Immature Gran % 0.4 % (0-0.5) 10/14/24 11:00
Neutrophils % 87.9 % (42.2-75.2) H 10/14/24 11:00
Lymphocytes % 3.8 % (20.5-51.1) L 10/14/24 11:00
Monocytes % 6.1 % (1.7-9.3) 10/14/24 11:00
Eosinophils % 1.5 % (0-6) 10/14/24 11:00
Basophils % 0.3 % (0-2) 10/14/24 11:00
Lactic Acid 1.3 mmol/L (0.7-2.0) 10/14/24 11:00
Microbiology Results
Micro:
10/14/24 13:21 Blood Culture - Pending
Blood/Venous
10/14/24 11:00 Blood Culture - Pending
Blood/Venous
10/11/2024 Plain film (tibia/fibula): No acute fracture or dislocation. Partially visualized regional joints demonstrate degenerative changes. Soft tissues are grossly unremarkable.
Assessment / Plan
Fever; suspect drug fever secondary to minocycline
Facial swelling
Left lateral calf wound at site of prior skin biopsy
- At present, no evidence of infection in this area.
Asthma
Basal cell skin cancer
Hx squamous cell CA
Recommendations:
At present, I would discontinue further minocycline as it may be contributing to the fever (serum sickness like reaction?), and there does not appear to be any ongoing infection in the left lateral calf area.
Would cover the calf wound with Adaptic. May consider evaluation in the [facility] wound care center.
Care Review
Plan reviewed with: Physician (ER)
[2024-10-14] MEDS: BACTROBAN 2% OINTMENT 1 APPLIC TOPICAL (17:06)
[2024-10-14] MEDS: NSS 500 IV (17:07)
--- NOTE | 2024-10-14 17:24 | HPS.HSE ---
Family Physician
-
Family Physician: Katia Jurado
Chief Complaint
-
fascial swelling
History of Present Illness
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 She had biopsy done by derm few weeks ago and was on Minocycline for presumed
infected wound of L benson. ID evaluated in ED and contributed fever to serum-like sickness and did not advise Abx as wound seened to be non-infected. Patient feeling dizzy while standing up and weak since was feeling generalized body aches for past
4-5 days during fevers and had very poor oral intake.
Medical History
Past Medical History
Past Medical History: Reports Other
Additional Past Medical History:
see HPI
Past Surgical History: Reports Other
Additional Past Surgical History:
See HPI
Social History
Tobacco: Non-smoker
Alcohol: None
Drug: None
Family History
Family History: Not pertinent
Allergies / Home Medications
Allergies reflects when Allergies were last updated in [facility].
Home Medications with original date entered in [facility]
Allergy/Medication List:
Allergies
Allergy/AdvReac Type Severity Reaction Status Date / Time
meperidine [From Demerol] Allergy Vomiting Verified 07/05/23 07:07
Sulfa (Sulfonamide Allergy Vomiting Verified 07/05/23 07:07
Antibiotics)
Home Medications
mupirocin 2 % topical ointment 1 applic topical BID infection prevention #1 tube 06/19/23
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
Probiotic 10 mg PO DAILY probiotic 06/20/23
cyclosporine 0.05 % eye drops in a dropperette (Restasis) 1 drp ophthalmic (eye) Q12H dry eyes 06/20/23
fluconazole 150 mg tablet 150 mg PO TU Infection [fungal] 06/20/23
fluticasone 250 mcg-salmeterol 50 mcg/dose blistr powdr for inhalation (Advair Diskus) 1 - 2 inh inhalation BID Lung/Breathing Issues 06/20/23
acetaminophen 325 mg capsule (Tylenol) 650 mg (2 x 325 mg) PO TID #2 caps 07/06/23
aspirin 325 mg tablet 325 mg PO DAILY blood clot prevention #1 tab 07/06/23
dexamethasone 4 mg tablet 4 mg PO BID inflammation #6 tabs 07/06/23
docusate sodium 100 mg capsule (Colace) 100 mg PO BID stool softner #1 cap 07/06/23
famotidine 20 mg tablet 20 mg PO HS GI prophylaxis #30 tabs 07/06/23
gabapentin 300 mg capsule 300 mg PO HS sleep/pain #10 caps 07/06/23
hydrocodone 5 mg-acetaminophen 325 mg tablet 1 tab PO Q6H PRN moderate-severe pain #20 tabs 07/06/23
magnesium hydroxide 400 mg/5 mL oral suspension (Milk of Magnesia) 30 ml PO HS PRN Constipation #1 mL 07/06/23
meloxicam 15 mg tablet 15 mg PO DAILY anti-inflammatory #14 tabs 07/06/23
ondansetron 4 mg disintegrating tablet 4 mg PO Q6H PRN n/v #20 tabs 07/06/23
sennosides 8.6 mg tablet (Senokot) 17.2 mg (2 x 8.6 mg) PO BID laxative #2 tabs 07/06/23
Review of Systems
-
History Source: Patient
A 12 point ROS was completed and negative except as noted: Yes
Constitutional: Reports Fever and Fatigue
Physical Exam
Vital Signs
Vital Signs
Temp Pulse Resp BP Pulse Ox
100.1 F 75 24 119/57 95
10/14/24 10:47 10/14/24 16:30 10/14/24 16:30 10/14/24 16:00 10/14/24 10:47
Physical Exam
General: No Apparent Distress, Comfortable and Conversant
HEENT: NormoCephalic, Anicteric and Moist mucous membranes
Respiratory: Clear; No Wheezes or Crackles
Cardiac: S1/S2; No Murmur or Rub
GI: Soft, Non Tender and Non Distended
Genito-urinary: No costovertebral tender
Musculoskeletal: No Clubbing, No Cyanosis and No Edema
Skin: Other (L benson dry keratosis)
Neuro: Awake, Alert, Oriented, AO x 3 and No Motor Deficits
Psych: Calm
Laboratory Results
-
10/14/24 11:00
10/14/24 11:00
Laboratory Results
Lactic Acid 1.3 mmol/L (0.7-2.0) 10/14/24 11:00
Total Bilirubin 0.9 mg/dl (0.2-1.3) 10/14/24 11:00
AST 29 U/L (14-36) 10/14/24 11:00
ALT 19 U/L (0-35) 10/14/24 11:00
Alkaline Phosphatase 58 U/L (38-126) 10/14/24 11:00
Data Reviewed
-
Lab Data: Labs Reviewed by me
Impression/Plan
-
A/P:
#Malar fascial rash
#Fever with concern for mild-modrate serum like sickness
SLE-like reaction to minocycline?
check CPK to r/o dermatomyositis
benadryl
stop Minocycline
Observe overnight - family and patient agreeable
UA pending
No respiratory symptoms. COVID-19 and Influenza neg 3 days ago when fevers broke out
#Poor oral intake and weakness
check rthostatic VS
patient usually with hypotension BP around 100/80-70 is a norm
IVF PRN
PT/OT
#IgG deficiency
on monthly IgG IV
#Asthma
not in exacerbation
cont bronchodilators
DVT ppx hep
Full code
I have spent at least 59min reviewing chart, test results, communication with consultants, family and providing direct patient care
[2024-10-14] MEDS: BENADRYL 12.5 MG IV (18:11)
[2024-10-14 18:15] LABS: Creatine Phosphokinase 151 U/L (30-135)
[2024-10-14] MEDS: LR 1000 IV (20:13)
[2024-10-14] MEDS: HEPARIN 5000 UNITS SC (20:14)
[2024-10-14] MEDS: RESTASIS 0.05% OPHTHALMIC EMULSION 1 DROPS BOTH EYES (20:15)
[2024-10-14] MEDS: ADVAIR HFA 115/21 MCG INHALER 2 PUFF INH (20:16)
--- NOTE | 2024-10-14 20:33 | EDRN ---
Patient ordered UA in triage. Patient voided in triage without providing sample. While in ED bed, RN instructed how to collect sample and provided patient with sample cup. Patient voided providing sample. Patient instructed again and verbalize she
will give sample next time she voids.
--- NOTE | 2024-10-14 21:30 | PTCARENOTE ---
Patient reported PMH of MRSA, most recent in 2019. Spoke to Nursing Map Drafter who reported that patient had a negative MRSA test here in Jun 2023. MRSA swab pending. May need private room depending on result.
[2024-10-15 02:51] LABS: Urine Albumin 2+ (Neg - Trace); Urine Bilirubin Negative (Negative); Urine Character Clear (Clear); Urine Color Amber; Urine Glucose Negative (Negative); Urine Ketone 2+ (Negative); Urine Leukocyte 1+ (Negative); Urine Nitrite Negative (Negative); Urine Occult Blood 1+ (Negative); Urine Urobilinogen Negative (Neg - 1+)
[2024-10-15 03:05] LABS: Urine Squamous Cell >30 /LPF (Few)
[2024-10-15 03:06] LABS: Urine Red Blood Cell None Seen /HPF (0-2)
[2024-10-15 03:07] LABS: Urine Bacteria Few (Negative)
[2024-10-15] MEDS: TYLENOL 650 MG PO ×2 (05:21→14:02)
--- NOTE | 2024-10-15 06:19 | W.PN.UPDATE ---
Update Note
Progress Note Update
~ 6:30 Patient evaluated for increased swelling and discomfort from malar facial rash. Patient c/o pain and tightness, states she can not open mouth wide. She denies difficulty breathing, denies swelling of tongue. Patient face is red and swollen.
Airway intact, no swelling of tongue noted. Vital signs stable. Ordered Benadryl 12.5 mg IV x 1 and Zyrtec 5 mg PO x 1 now.
[2024-10-15] MEDS: LR 1000 IV (06:36)
[2024-10-15] MEDS: BENADRYL 12.5 MG IV (06:37)
[2024-10-15] MEDS: ZYRTEC 5 MG PO (06:40)
[2024-10-15 07:45] VITALS: BP 104/55
[2024-10-15 08:02] LABS: ALT (SGPT) 20 U/L (0-35); AST (SGOT) 29 U/L (14-36); Albumin 2.9 g/dl (3.5-5.0); Alkaline Phosphatase 58 U/L (38-126); Blood Urea Nitrogen 20 mg/dl (7-17); Calcium 8.2 mg/dl (8.4-10.2); Carbon Dioxide 28 mmol/L (22-30); Chloride 106 mmol/L (98-107); Estimated Creatinine Clearance 35 ml/min; Glucose 106 mg/dl (70-99); Potassium 3.7 mmol/L (3.5-5.1); Sodium 134 mmol/L (135-145); Total Bilirubin 0.8 mg/dl (0.2-1.3); Total Protein 5.4 g/dl (6.3-8.2); eGFR > 60.00
[2024-10-15] MEDS: ADVAIR HFA 115/21 MCG INHALER INH (08:09)
[2024-10-15 08:22] LABS: Hematocrit 36.4 % (37.0-47.0); Hemoglobin 12.3 g/dL (12.0-16.0); Mean Corp Hgb Conc. 33.8 g/dL (33.0-37.0); Mean Corpuscular Hgb 30.5 pg (27.0-31.0); Mean Corpuscular Volume 90.3 fL (81.0-99.0); Mean Platelet Volume 10.5 fL (7.4-10.4); Platelet Count 155 10^3/uL (130-400); Red Blood Cell Count 4.03 10^6/uL (4.20-5.40); Red Cell Dist. Width 13.4 % (11.5-14.5)
[2024-10-15 08:53] LABS: LDH 203 U/L (120-246)
--- NOTE | 2024-10-15 08:57 | W.PN.HOSP.TC ---
Today's Communication/Plan
-
see PN
Assessment / Plan
Assessment / Plan
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 She had biopsy done by derm few weeks ago and was on Minocycline for presumed
infected wound of L benson. ID evaluated in ED and contributed fever to serum-like sickness and did not advise Abx as wound seened to be non-infected. Patient feeling dizzy while standing up and weak since was feeling generalized body aches for past
4-5 days during fevers and had very poor oral intake. Further w/u noted possible UTI
A/P:
#Malar fascial rash
#Fever with concern for mild-modrate serum like sickness
SLE-like reaction to minocycline?
CPK low
SHELLEY, anti-histone Ab pending
Check ferritin, ESR, CRP, LDH
benadryl PRN
stop Minocycline
Observe overnight - family and patient agreeable
Bcx NTD
Chest XR
#Possible UTI
Ceftriaxone pending Ucx since elevated procalcitonin
US renal
#Poor oral intake and weakness
check rthostatic VS
patient usually with hypotension BP around 100/80-70 is a norm
IVF PRN
PT/OT
#IgG deficiency
on monthly IgG IV with in [facility] ([phone]; [phone])
#Asthma
not in exacerbation
cont bronchodilators
DVT ppx hep
Full code
I have spent at least 59min reviewing chart, test results, communication with consultants, family and providing direct patient care
Anticipated Discharge: 24 - 48 hours
Subjective/Interval History
-
Date of Service: October 15, 2024
Objective Data
-
Labs:
Laboratory Results
10/15/24
07:22
WBC 6.0
Hgb 12.3
Hct 36.4 L
Plt Count 155
Sodium 134 L
Potassium 3.7
Chloride 106
Carbon Dioxide 28
BUN 20 H
Creatinine 0.8
Glucose 106 H
Calcium 8.2 L
Total Bilirubin 0.8
AST 29
ALT 20
Alkaline Phosphatase 58
Vital Signs:
Vital Signs
Temp Pulse Resp BP Pulse Ox
99.6 F 76 16 104/55 95
10/15/24 07:45 10/15/24 07:45 10/15/24 07:45 10/15/24 07:45 10/15/24 07:45
Review of Systems
-
History Source: Patient
All other systems: Reviewed and negative
Physical Exam
-
General: No Apparent Distress
HEENT: Normocephalic
Respiratory: Clear to Auscultation
Cardiac: Regular Rhythm
GI: Soft
Genito-urinary: No Costovertebral Tender
Musculoskeletal: No Clubbing, No Cyanosis and No Edema
Skin: Rash (heliotrope swelling and rash on the face, no tongue swelling) and Other
[2024-10-15] MEDS: HEPARIN SC (09:03)
[2024-10-15] MEDS: RESTASIS 0.05% OPHTHALMIC EMULSION 1 DROPS BOTH EYES ×2 (09:03→20:42)
[2024-10-15 09:54] LABS: Erythrocyte Sed Rate 66 mm/hour (0-20)
[2024-10-15 11:16] VITALS: BMI 18.7
[2024-10-15 11:29] LABS: % Basophils 0.2 % (0-2); % Eosinophils 5.8 % (0-6); % Immature Granulocytes 0.5 % (0-0.5); % Lymphocytes 4.3 % (20.5-51.1); % Monocytes 6.1 % (1.7-9.3); % Neutrophils 83.1 % (42.2-75.2); Absolute Eosinophils 0.4 10^3/uL (0-0.7); Absolute Lymphocytes 0.3 10^3/uL (1.2-3.4); Absolute Monocytes 0.4 10^3/uL (0.1-0.6); Nucleated Red Blood Cells % 0 %
--- NOTE | 2024-10-15 14:15 | W.PN.ID1 ---
Date of Service
Date of Service: October 15, 2024
Today's Communication
See below
Assessment / Plan
# Drug reaction to minocycline (last dose 10/14 am)
- serum sickness like reaction
- Drug fever
-Facial swelling slight improvement
- Continue supportive care
- Follow temps and clinically.
# Left lateral calf lesions.
- Lesions appeared after trip to [place] (spent time at the beach and swam salt water)
- Derm excised large lesion. Was placed on cephalexin , then doxycycline, then minocycline
I reviewed [facility] tissue biopsy culture: + Chryseobacterium indologenes (sensitive to ceftriaxone, cipro, levofloxacin)
- Per patient, lesion overall improving.
- Can treat remaining course with Levofloxacin 750mg po q48h, first dose tomorrow through 10/29/24.
# Pulm infiltrate - atelectasis
- No respiratory symptoms
- DC further levofloxacin and azithromycin.
Asthma
Basal cell skin cancer
Hx squamous cell CA
Chief Complaint
-: Other (Drug reaction)
Subjective / Review of Systems
Face still swollen. Feels tired.
No cough.
Vital Signs / Physical Exam
Vital Signs
Vital Signs
Temp Pulse Resp BP Pulse Ox
99.6 F 76 16 104/55 99
10/15/24 07:45 10/15/24 07:45 10/15/24 07:45 10/15/24 07:45 10/15/24 08:00
Physical Exam
Constitutional: Non-toxic
Head: Other (bilateral malar erythema and edema)
Cardiovascular: Regular Rate and S1/S2
Pulmonary: Coarse
Gastrointestinal: Soft and Non Tender
Wound: Other (left benson - area with clusters of black lesions)
Objective Data
Lab Data
Lab Results
10/15/24 07:22
10/15/24 07:22
ESR 66 mm/hour (0-20) H 10/15/24 07:22
Estimated Creat Clear 35 ml/min 10/15/24 07:22
Lactic Acid 1.3 mmol/L (0.7-2.0) 10/14/24 11:00
Total Bilirubin 0.8 mg/dl (0.2-1.3) 10/15/24 07:22
AST 29 U/L (14-36) 10/15/24 07:22
ALT 20 U/L (0-35) 10/15/24 07:22
Alkaline Phosphatase 58 U/L (38-126) 10/15/24 07:22
Most recent labs reviewed.
Micro Results:
10/14/24 13:21 Blood Culture - Preliminary
Blood/Venous No Growth in 24 hours- Final report to follow
10/14/24 11:00 Blood Culture - Preliminary
Blood/Venous No Growth in 24 hours- Final report to follow
10/15/24 02:39 Urine Culture - Pending
Urine
10/14/24 20:12 MRSA Screen - Pending
Nose
10/11/2024 Plain film (tibia/fibula): No acute fracture or dislocation. Partially visualized regional joints demonstrate degenerative changes. Soft tissues are grossly unremarkable.
Care Review
Plan reviewed with: Physician (Dr. Samaniego)
--- NOTE | 2024-10-15 15:37 | W.PN.UPDATE ---
Update Note
Progress Note Update
As per detailed discussion on ua and chest XR findings with ID - no indication for Abx. Will attempt Steroids for fascial swelling
[2024-10-15 15:51] VITALS: BP 98/56
[2024-10-15] MEDS: DECADRON 10 MG IV (16:12)
--- NOTE | 2024-10-15 16:33 | CM ---
Patient was admitted under OBS and switched to inpatient, IMM was completed on admission. shift nurse manager reviewed patient's chart and met with patient and patient lives alone in a multilevel home, patient reports she is independent with adl's and
ambulation, plan is to home no needs.
PCP: Aleja Jurado
Pharmacy: [facility] [place].
[2024-10-15] MEDS: ADVAIR HFA 115/21 MCG INHALER 2 PUFF INH (20:15)
[2024-10-15] MEDS: HEPARIN 5000 UNITS SC (20:41)
[2024-10-15 23:43] VITALS: BP 106/72
[2024-10-16 07:00] VITALS: BP 105/60
[2024-10-16 07:42] LABS: % Basophils 0.2 % (0-2); % Eosinophils 0.2 % (0-6); % Immature Granulocytes 0.5 % (0-0.5); % Lymphocytes 7.5 % (20.5-51.1); % Monocytes 4.3 % (1.7-9.3); % Neutrophils 87.3 % (42.2-75.2); Absolute Lymphocytes 0.4 10^3/uL (1.2-3.4); Absolute Monocytes 0.3 10^3/uL (0.1-0.6); Absolute Neutrophils 5.1 10^3/uL (1.4-6.5); Hematocrit 37.6 % (37.0-47.0); Hemoglobin 12.6 g/dL (12.0-16.0); Mean Corp Hgb Conc. 33.5 g/dL (33.0-37.0); Mean Corpuscular Hgb 30.2 pg (27.0-31.0); Mean Corpuscular Volume 90.2 fL (81.0-99.0); Mean Platelet Volume 10.2 fL (7.4-10.4); Nucleated Red Blood Cells % 0 %; Platelet Count 193 10^3/uL (130-400); Red Blood Cell Count 4.17 10^6/uL (4.20-5.40); Red Cell Dist. Width 13.4 % (11.5-14.5); White Blood Cell Count 5.9 10^3/uL (4.8-10.8)
[2024-10-16] MEDS: LEVAQUIN 750 MG PO (07:50)
[2024-10-16] MEDS: RESTASIS 0.05% OPHTHALMIC EMULSION 1 DROPS BOTH EYES (07:50)
[2024-10-16] MEDS: HEPARIN SC (07:51)
[2024-10-16 07:53] LABS: ALT (SGPT) 36 U/L (0-35); AST (SGOT) 43 U/L (14-36); Albumin 3.1 g/dl (3.5-5.0); Alkaline Phosphatase 71 U/L (38-126); Blood Urea Nitrogen 21 mg/dl (7-17); Calcium 8.8 mg/dl (8.4-10.2); Carbon Dioxide 25 mmol/L (22-30); Chloride 106 mmol/L (98-107); Estimated Creatinine Clearance 47 ml/min; Glucose 143 mg/dl (70-99); Potassium 3.8 mmol/L (3.5-5.1); Sodium 139 mmol/L (135-145); Total Protein 5.7 g/dl (6.3-8.2); eGFR > 60.00
[2024-10-16 08:25] LABS: Total Bilirubin 0.6 mg/dl (0.2-1.3)
[2024-10-16] MEDS: ADVAIR HFA 115/21 MCG INHALER 2 PUFF INH (08:28)
[2024-10-16 08:53] LABS: Creatine Phosphokinase 58 U/L (30-135)
--- NOTE | 2024-10-16 09:57 | W.PN.HOSP.TC ---
Today's Communication/Plan
-
DC
Assessment / Plan
Assessment / Plan
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 She had biopsy done by derm few weeks ago and was on Minocycline for presumed
infected wound of L benson. Patient started with wound after trip to [place] in july. Derm did I&D and sent biopsy that was negative for CA, buit growing Chryseobacterium indologenes. Initially staretd on Keflex, then Doxy, then minocycline, when
developed fascial swelling with malar rash. Admitted with posisble serum sickness. ID recommended Levaquin until 10/29/24 as per sensitivity results. UTI was unlikely. US renal with simple ysts only. Mild AST and ALT elevation probably 2/2 drugs and
patient will follow for repeated LFT in 1 week upon d/c. Tapering dose of steroids at home as swelling much decreased on dose in hospital. Back to her baseline functioning and requesting d/c home. Will recommend to be seen by textile machine maintenance mechanic and to
extend Abx course with PCP if fascial rash returns. Patient verbalized understanding of the instructions, but in spite of great time spent while explaining - was not very sure if this plan should be followed by her. Emphasized importance of follow
up. Medcially stable for d/c
A/P:
#Malar fascial rash
#Fever with concern for mild-moderate serum like sickness
SLE-like reaction to minocycline?
CPK low
SHELLEY, anti-histone Ab pending
Check ferritin, ESR, CRP, LDH
benadryl PRN
stop Minocycline
Observe overnight - family and patient agreeable
Bcx NTD
Chest XR
#Possible UTI
Ceftriaxone pending Ucx since elevated procalcitonin
US renal
#Poor oral intake and weakness
Improved
#IgG deficiency
on monthly IgG IV with in [facility] ([phone]; [phone])
#Asthma
not in exacerbation
cont bronchodilators
DVT ppx hep
Full code
I have spent at least 39min reviewing chart, test results, communication with consultants, family and providing direct patient care
Anticipated Discharge: Today
Subjective/Interval History
-
Date of Service: October 16, 2024
Objective Data
-
Labs:
Laboratory Results
10/16/24
06:58
WBC 5.9
Hgb 12.6
Hct 37.6
Plt Count 193 D
Sodium 139
Potassium 3.8
Chloride 106
Carbon Dioxide 25
BUN 21 H
Creatinine 0.6
Glucose 143 H
Calcium 8.8
Total Bilirubin 0.6
AST 43 H
ALT 36 H
Alkaline Phosphatase 71
Vital Signs:
Vital Signs
Temp Pulse Resp BP Pulse Ox
98.2 F 80 16 105/60 94
10/16/24 07:00 10/16/24 08:29 10/16/24 08:29 10/16/24 07:00 10/16/24 08:29
I&O
10/15/24 10/16/24 10/17/24
06:59 06:59 06:59
Intake Total 480 / 480
Balance 480 / 480
Review of Systems
-
History Source: Patient
All other systems: Reviewed and negative
Physical Exam
-
General: No Apparent Distress
HEENT: Normocephalic
Skin: Other (minimal malar rash)
Neuro: Awake, Alert, Oriented and AO x 3
Psych: Calm
--- NOTE | 2024-10-16 10:07 | W.DCSUMMARY ---
Discharge Summary
Discharge Data
Date of Admission: 10/15/24
Date of Discharge: 10/16/24
-
Pending Results: No
Hospital Course
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 She had biopsy done by derm few weeks ago and was on Minocycline for presumed
infected wound of L benson. Patient started with wound after trip to [place] in july. Derm did I&D and sent biopsy that was negative for CA, buit growing Chryseobacterium indologenes. Initially staretd on Keflex, then Doxy, then minocycline, when
developed fascial swelling with malar rash. Admitted with posisble serum sickness. ID recommended Levaquin until 10/29/24 as per sensitivity results. UTI was unlikely. US renal with simple ysts only. Mild AST and ALT elevation probably 2/2 drugs and
patient will follow for repeated LFT in 1 week upon d/c. Tapering dose of steroids at home as swelling much decreased on dose in hospital. Back to her baseline functioning and requesting d/c home. Will recommend to be seen by department secretary and to
extend Abx course with PCP if fascial rash returns. Patient verbalized understanding of the instructions, but in spite of great time spent while explaining - was not very sure if this plan should be followed by her. Emphasized importance of follow
up. Medcially stable for d/c
[facility] was messaged to establish close f/u
I have spent at least 39min reviewing chart, test results, communication with consultants, family and providing direct patient care
Patient was managed for:
#Malar fascial rash
#Fever with concern for mild-moderate serum like sickness
#LLE cellulitis
#Possible UTI ruled out
#Poor oral intake and weakness
#IgG deficiency
#Asthma not in exacerbation
#Mild transaminitis
#Elevated inflammatory markers
Discharge Plan
-
Blood Work: LFT with PCP in 1 week
Referrals:
Katia Jurado, DO [Family Provider] -
Roberta Armstrong MD [Active] - in two to four weeks
Carla Sanchez MD [Active] - in two weeks
Prescriptions:
New
prednisone 10 mg Tablet
See Rx Instructions .ROUTE .COMPLEX Qty: 30 0RF
Rx Instructions:
Take By Mouth:
40 mg daily x3 days, 30 mg daily x3 days,
20 mg daily x3 days, 10 mg daily x3 days.
levofloxacin 750 mg Tablet
750 mg PO Q48H Qty: 6 0RF
Continued
cyclosporine [Restasis] 0.05 % Dropperette
1 drp BOTH EYES Q12H
Visbiome 112.5 billion cell Capsule
1 cap PO DAILY Qty: 0
Immune Globulin
1 dose IV Q30D
fluticasone propion-salmeterol [Advair Diskus] 250-50 mcg/dose Blister With Device
2 inh INHALATION 1XD
acetaminophen [Tylenol] 325 mg Tablet
650 mg PO Q6HPRN PRN (Reason: mild pain)
Theragen Tablet
1 tab PO DAILY
zolpidem [Ambien] 5 mg Tablet
5 mg PO HSPRN PRN (Reason: sleep)
cholecalciferol (vitamin D3) [Vitamin D3] 25 mcg (1,000 unit) Tablet
25 mcg PO DAILY
turmeric 400 mg Capsule
400 mg PO DAILY
Discontinued
ascorbic acid (vitamin C) [Vitamin C] 1,000 mg Tablet
1,000 mg PO DAILY
vitamin E 268 mg (400 unit) Capsule
268 mg PO DAILY
Discharge Orders:
Discharge Patient (As Directed); Ordered 10/16/24
Ordered By: Michele Samaniego
Discharge Date and Time
Print Language: COOK ISLANDER
--- NOTE | 2024-10-16 10:36 | W.PN.ID1 ---
Date of Service
Date of Service: October 16, 2024
Today's Communication
Levofloxacin 750mg po q48h through 10/29/24.
Follow up with me in 2 weeks.
Assessment / Plan
# Drug reaction to minocycline (last dose 10/14 am)
- serum sickness like reaction from minocycline
- Drug fever resolved
-Facial swelling improving with steroid
- Continue supportive care
# Left lateral calf lesions.
- Lesions appeared after trip to [place] (spent time at the beach and swam salt water)
- Derm excised large lesion. Was placed on cephalexin , then doxycycline, then minocycline
I reviewed [facility] tissue biopsy culture: + Chryseobacterium indologenes (sensitive to ceftriaxone, cipro, levofloxacin)
- Per patient, lesion overall improving.
- Start Levofloxacin 750mg po q48h through 10/29/24.
# Pulm infiltrate - atelectasis
- No respiratory symptoms
- DC'd further ceftriaxone and azithromycin onm 10/15.
Follow-up with me in 2 weeks.
Asthma
Basal cell skin cancer
Hx squamous cell CA
Chief Complaint
-: Other (Drug reaction)
Subjective / Review of Systems
Feeling much improved with decrease facial swelling, aches/pains.
Vital Signs / Physical Exam
Vital Signs
Vital Signs
Temp Pulse Resp BP Pulse Ox
98.2 F 80 16 105/60 94
10/16/24 07:00 10/16/24 08:29 10/16/24 08:29 10/16/24 07:00 10/16/24 08:29
Physical Exam
Constitutional: No Acute Distress and Comfortable
Head: Other (Malar erythema and edema decreased)
Eyes: No Conjunctival Hemorrhage and Sclera Anicteric
Cardiovascular: Regular Rate and S1/S2
Pulmonary: Clear
Gastrointestinal: Soft, Non Tender and Non Distended
Genito-Urinary: Negative CVA Tenderness
Extremities: Negative Edema
Wound: Other (Left calf; approx 5cm area with black flat lesions on wound.)
Neurological: AO x 3
Objective Data
Lab Data
Lab Results
10/16/24 06:58
10/16/24 06:58
ESR 66 mm/hour (0-20) H 10/15/24 07:22
Estimated Creat Clear 47 ml/min 10/16/24 06:58
Lactic Acid 1.3 mmol/L (0.7-2.0) 10/14/24 11:00
Total Bilirubin 0.6 mg/dl (0.2-1.3) 10/16/24 06:58
AST 43 U/L (14-36) H 10/16/24 06:58
ALT 36 U/L (0-35) H 10/16/24 06:58
Alkaline Phosphatase 71 U/L (38-126) 10/16/24 06:58
C-Reactive Protein 191.80 mg/L (0.0-10.00) H 10/15/24 07:22
Most recent labs reviewed.
Micro Results:
10/14/24 20:12 MRSA Screen - Final
Nose No Methicillin Resistant Staphylococcus aureus isolated.
10/14/24 13:21 Blood Culture - Preliminary
Blood/Venous No Growth in 24 hours- Final report to follow
10/14/24 11:00 Blood Culture - Preliminary
Blood/Venous No Growth in 24 hours- Final report to follow
10/15/24 02:39 Urine Culture - Pending
Urine
10/11/2024 Plain film (tibia/fibula): No acute fracture or dislocation. Partially visualized regional joints demonstrate degenerative changes. Soft tissues are grossly unremarkable.
Care Review
Plan reviewed with: Physician (Dr. Samaniego)
[2024-10-16] MEDS: DELTASONE 50 MG PO (10:46)
--- NOTE | 2024-10-16 11:05 | WOUNDNOTE ---
[facility] RN note: Patient admitted with fever, serum sickness.
See H&P for complete history.
PMH: basal cell and squamous cell cancer-recent biopsy done on L leg by portable irrigation operator.
Wound Location and type/assessment: Patient admitted with: L leg scattered red sores in a cluster, biopsy site done recently. Patient states area is looking better, showed me pictures of L leg when biopsied. Patient able to turn self to side,
sacrum and heels are intact. Reviewed I&D note, results of biopsy per Dr. Sanchez are as follows: [facility] tissue biopsy culture: + Chryseobacterium indologenes.
Appetite: Good, encouraged protein in diet.
Pressure redistribution devices in place: Air mattress.
Plan: local wound care applied. Teaching done with patient and daughter at bedside regarding wound care. Supplies given to patient and will update discharge instructions. Will confirm orders with hospitalist and updated nurse James.
Updated care plan and will follow as needed.
Note to case management of equipment requested for discharge: None.
Recommend follow up with Dr. Sanchez.
--- NOTE | 2024-10-16 11:50 | CM ---
Patient is for discharge today home no needs.
Plan; Home no needs.
[2024-10-16 14:30] VITALS: BP 108/71
[2024-10-17 12:12] LABS: Lyme Antibody Screen, EIA Negative (Negative)
[2024-10-17 15:32] LABS: Hepatitis B Surface Antigen Negative (Negative)
[2024-10-17 15:50] LABS: Hepatitis B Core Ab, Total Negative (Negative); Hepatitis B Surface Antibody Positive; Hepatitis C Antibody Negative (Negative)
[2024-10-17 20:15] LABS: ANA, IgG Reflex to HEp-2 None Detected (None Detected)
== END 2024-10-16 15:33 | disposition home or self-care (01) | DRG 916 ==
LOC: 4 WEST ACU 08:59
PROVIDERS: Emergency Medicine; ADMITTING PHYSICIAN Internal Medicine; CONSULT PHYSICIAN Internal Medicine Infectious Disease; EMERGENCY PHYSICIAN Emergency Medicine; FAMILY PHYSICIAN Internal Medicine
DX: T80.69XA Other serum reaction due to other serum, initial encounter (principal); L03.116 Cellulitis of left lower limb; D80.3 Selective deficiency of immunoglobulin G [IgG] subclasses; J98.11 Atelectasis; T36.4X5A Adverse effect of tetracyclines, initial encounter; R21 Rash and other nonspecific skin eruption; J45.909 Unspecified asthma, uncomplicated; M32.0 Drug-induced systemic lupus erythematosus; Y84.8 Other medical procedures as the cause of abnormal reaction of the patient, or of later complication, without mention of misadventure at the time of the procedure
CPT/HCPCS: 71046; 76770; 80053; 81003; 81015; 82550; 82728; 83516; 83605; 83615; 84145; 85025; 85652; 86038; 86140; 86618; 86704; 86706; 86803; 87040; 87070; 87086; 87340; 93005; 94640; 96360; 99285